=== PATIENT | male | born 1990 | race African-American/Black ===

== ENCOUNTER 2022-05-27 00:15 | Emergency (ER) | payer SELFPAY ==
[2022-05-27] MEDS ORDERED: Albuterol/Ipratropium 3.0-0.5 MG/3 ML Neb Soln NEB ONE (00:44)
[2022-05-27 02:03] LABS: CORONAVIRUS COVID-19 NAA NEGATIVE (NEGATIVE); RESPIRATORY SYNCYTIAL VIR NAA NEGATIVE (NEGATIVE)
[2022-05-27] MEDS ORDERED: Take Home: Amoxicillin 875 MG Tab, 2 Tab Pack PO ONE (02:15)
[2022-05-27] MEDS ORDERED: Take Home: predniSONE 20 MG, 2 Tab Pack PO ONE (02:15)
[2022-05-27] MEDS ORDERED: Take Home: Albuterol 18 GM Inhaler, 1 Inhaler Pack INH PRN (02:15)
[2022-05-27] MEDS ORDERED: Take Home: Amoxicillin/Clavulanate K 875-125 MG Tab, 2 Tab Pack PO ONE (02:18)
[2022-05-27] MEDS ORDERED: Take Home: Levofloxacin 500 MG Tab, 1 Tab Pack PO ONE (02:31)
[2022-05-27] MEDS ORDERED: Take Home: Doxycycline 100 MG Tab, 4 Tab Pack PO ONE (02:34)
== END 2022-05-27 02:44 | disposition home or self-care (01) ==
LOC: VM.ED 00:15
DX: J21.9 Acute bronchiolitis, unspecified (principal); J32.9 Chronic sinusitis, unspecified; Z20.822 Contact with and (suspected) exposure to COVID-19
CPT/HCPCS: 0241U; 71046; 99283; 99284; A9270; J7512; J7620-GY